=== PATIENT | female | born 1965 | race Caucasian/White ===

== ENCOUNTER 2017-08-23 21:08 | Emergency (ER) | payer OTHER ==
[~2017-08-23] VITALS: Ht 154.9 cm; Wt 70.8 kg
[2017-08-23 21:25] VITALS: Ht 154.9 cm; Wt 70.8 kg
[2017-08-23 23:18] LABS: PLATELET COUNT 205 x10^3mcL (130-400); RED CELL DISTRIBUTION WIDTH 14.1 % (11.5-14.5)
[2017-08-23 23:32] LABS: CALCIUM 8.7 mg/dL (8.5-10.1); CARBON DIOXIDE 27.2 mmol/L (21-32); CHLORIDE SERUM 106 mmol/L (98-107); CREATININE SERUM 0.7 mg/dL (0.6-1.0); GFR1 > 60 mL/min; GLUCOSE SERUM 112 mg/dL (74-106); POTASSIUM SERUM 4.4 mmol/L (3.5-5.1); SODIUM SERUM 143 mmol/L (136-145)
[2017-08-23 23:37] LABS: ALBUMIN 3.8 g/dL (3.4-5.0); ALKALINE PHOSPHATASE 129 U/L (46-116); ALT/SGPT 46 U/L (14-59); AST/SGOT 24 U/L (15-37); BILIRUBIN TOTAL 0.3 mg/dL (0.20-1.00); TOTAL PROTEIN, SERUM 7.5 g/dL (6.4-8.2)
[2017-08-24 02:25] VITALS: BP 112/78
== END 2017-08-24 02:25 | disposition home or self-care (01) ==
LOC: ED 21:08
PROVIDERS: Emergency Medicine
DX: R07.89 Other chest pain (principal)
CPT/HCPCS: J1885

== ENCOUNTER 2018-01-23 19:53 | Emergency (ER) | payer MEDICAID ==
[~2018-01-23] VITALS: Ht 154.9 cm; Wt 32.9 kg
[2018-01-23 23:34] VITALS: BP 115/84
== END 2018-01-23 23:34 | disposition home or self-care (01) ==
LOC: ED 19:53
DX: J98.01 Acute bronchospasm (principal); R07.89 Other chest pain; R05 Cough; G58.9 Mononeuropathy, unspecified
CPT/HCPCS: J7512; J7613; Q0092

== ENCOUNTER 2018-02-04 22:03 | Inpatient (IN) | payer MEDICAID ==
[~2018-02-04] VITALS: Ht 157.5 cm; Wt 73.5 kg
[2018-02-04 22:04] VITALS: Ht 157.5 cm; Wt 73.5 kg
[2018-02-04 22:40] LABS: PLATELET COUNT 211 x10^3mcL (130-400); RED CELL DISTRIBUTION WIDTH 13.8 % (11.5-14.5)
[2018-02-04 22:44] LABS: CALCIUM 9.3 mg/dL (8.5-10.1); CARBON DIOXIDE 23.1 mmol/L (21-32); CHLORIDE SERUM 101 mmol/L (98-107); CREATININE SERUM 0.9 mg/dL (0.6-1.0); GFR1 > 60 mL/min; GLUCOSE SERUM 221 mg/dL (74-106); SODIUM SERUM 136 mmol/L (136-145)
[2018-02-04 22:50] LABS: ALBUMIN 3.7 g/dL (3.4-5.0); ALKALINE PHOSPHATASE 142 U/L (46-116); ALT/SGPT 89 U/L (14-59); AST/SGOT 37 U/L (15-37); BILIRUBIN TOTAL 0.3 mg/dL (0.20-1.00); TOTAL PROTEIN, SERUM 8.1 g/dL (6.4-8.2)
[2018-02-05 00:32] VITALS: BP 128/64
[2018-02-05 02:42] LABS: PHOSPHOROUS 1.8 mg/dL (2.5-4.9)
[2018-02-05 02:43] LABS: CHOLESTEROL/HDL RATIO 3.6
[2018-02-05 02:53] LABS: FREE T4 1.25 ng/dL (0.76-1.46); FREE THYROXINE INDEX 3.4 ug/dL (1.4-4.5); T4(THYROXINE) 9.4 ug/dL (4.7-13.3)
[2018-02-05 03:01] LABS: T3 TOTAL 1.38 ng/mL
[2018-02-05 05:24] VITALS: BP 114/66
[2018-02-05 05:37] LABS: microscopic required? NO
[2018-02-05 05:50] LABS: urine erythrocyte NEGATIVE (NEGATIVE)
[2018-02-05 06:09] LABS: AMPHETAMINE QUAL UR NONE DETECTED (See below)
[2018-02-05 06:10] LABS: BASOPHIL % 0.3 % (0-2); PLATELET COUNT 207 x10^3mcL (130-400)
[2018-02-05 06:46] LABS: CALCIUM 8.8 mg/dL (8.5-10.1); CARBON DIOXIDE 26.6 mmol/L (21-32); CHLORIDE SERUM 103 mmol/L (98-107); CREATININE SERUM 0.7 mg/dL (0.6-1.0); GFR1 > 60 mL/min; GLUCOSE SERUM 128 mg/dL (74-106); POTASSIUM SERUM 4.4 mmol/L (3.5-5.1); SODIUM SERUM 136 mmol/L (136-145)
[2018-02-05 07:30] VITALS: BP 101/36
[2018-02-05 14:03] VITALS: BP 114/79
[2018-02-05] MEDS ORDERED: METFORMIN HCL500 MG PO (15:20)
[2018-02-05 15:31] VITALS: BP 114/79
== END 2018-02-05 16:01 | disposition home or self-care (01) | DRG 203 ==
LOC: ED 22:03 → DU 23:41
PROVIDERS: Emergency Medicine; Internal Medicine
DX: M94.0 Chondrocostal junction syndrome [Tietze] (principal); E11.65 Type 2 diabetes mellitus with hyperglycemia; E83.39 Other disorders of phosphorus metabolism; F41.9 Anxiety disorder, unspecified; E78.5 Hyperlipidemia, unspecified; E78.00 Pure hypercholesterolemia, unspecified; Z68.26 Body mass index [BMI] 26.0-26.9, adult
CPT/HCPCS: 82962; 83880; 84439; 85378; J2270; J2405; J7030; Q0092; Q0162

== ENCOUNTER 2018-02-13 20:19 | Emergency (ER) | payer MEDICAID ==
[~2018-02-13 20:19] MED LIST: METFORMIN HCL500 MG PO
== END 2018-02-13 20:53 | disposition left against medical advice (07) ==
LOC: ED 20:19
DX: Z53.21 Procedure and treatment not carried out due to patient leaving prior to being seen by health care provider (principal)

== ENCOUNTER 2018-04-09 03:41 | Emergency (ER) | payer OTHER ==
[~2018-04-09] VITALS: Ht 154.9 cm; Wt 68.0 kg
[2018-04-09 03:59] VITALS: Ht 154.9 cm; Wt 68.0 kg
[2018-04-09 06:09] VITALS: BP 120/68
== END 2018-04-09 06:09 | disposition home or self-care (01) ==
LOC: ED 03:41
DX: R42 Dizziness and giddiness (principal); R51 Headache; R11.2 Nausea with vomiting, unspecified; E11.8 Type 2 diabetes mellitus with unspecified complications; Z98.890 Other specified postprocedural states
CPT/HCPCS: J1885; J2060; J2405; J7030; J8597